=== PATIENT | male | born 1995 | race Caucasian/White ===

== ENCOUNTER → 2016-11-02 | Outpatient (CLI) | payer OTHER | LOC: COL.RAD 11:01 | DX: Z02.89 Encounter for other administrative examinations (principal) ==

== ENCOUNTER → 2017-01-28 | Outpatient (CLI) | payer OTHER | LOC: COL.RAD 13:18 | DX: S43.102A Unspecified dislocation of left acromioclavicular joint, initial encounter (principal); X58.XXXA Exposure to other specified factors, initial encounter; S43.492A Other sprain of left shoulder joint, initial encounter; M24.112 Other articular cartilage disorders, left shoulder; M75.82 Other shoulder lesions, left shoulder; M75.52 Bursitis of left shoulder; M24.012 Loose body in left shoulder; S42.292D Other displaced fracture of upper end of left humerus, subsequent encounter for fracture with routine healing; X58.XXXD Exposure to other specified factors, subsequent encounter | CPT/HCPCS: A9585; Q9967 ==